=== PATIENT | male | born 1945 | race Caucasian/White ===

== ENCOUNTER 2019-05-23 08:00 | Outpatient (CLI) | payer MEDICARE ==
[~2019-05-23] VITALS: Ht 175.3 cm; Wt 110.0 kg
[2019-05-26 07:36] VITALS: BP 144/88
== END 2019-05-23 23:59 | disposition home or self-care (01) ==
LOC: STAR 08:00 → ORIP 05-26 06:36 → UNDOADMIN 05-26 06:36 → EDSTATUS 05-26 08:45 → UNDODISIN 05-26 08:50
PROVIDERS: ATTEND Orthopaedic Surgery
DX: Z01.818 Encounter for other preprocedural examination (principal); M25.551 Pain in right hip
CPT/HCPCS: 36415; 80053; 82962; 83036; 85025; 85610; 85730; 86850; 86900; 87081; 87806; 93005; J0171; J1885; J2795; G0475; J7120

== ENCOUNTER 2019-05-26 08:00 | Outpatient (CLI) | payer MEDICARE ==
[~2019-05-26 08:00] MED LIST: ACET325T14 PO; ALBU2.5V NPPB; ASPI81TA59 PO; ATOR10TA9 PO; ATOR20TA PO; ATOR20TA37 PO; CYAN1TAB29 PO; DABI150C PO; DEXT1DRO6 EACHEYE; DOCU-131 PO; FERR-51 PO; FURO-92 PO; GUAI5SYR PO; HYDR-3237 PO; HYDR10TA4 PO; IBUP-1623 PO; LISI-170 PO; LISI1TAB20 PO; NITR0.4T41 SL; OMEP-110 PO; PRADAXA PO; ROPI0.5T2 PO; SERT100T32 PO; SIMV20TA PO; TRAZ-137 PO; UNKNOWN CHOLESTEROL; WARF-36 PO-COUM; [UNRECOGNIZED DRUG - REMARK]; magnesium PO
== END 2019-05-26 23:59 | disposition home or self-care (01) ==
LOC: STAR 08:00
PROVIDERS: ATTEND Orthopaedic Surgery
DX: M16.11 Unilateral primary osteoarthritis, right hip (principal); Z53.8 Procedure and treatment not carried out for other reasons; Z79.899 Other long term (current) drug therapy
CPT/HCPCS: 36415; 82962; 86850; 86900; J7120; J0171; J1885; J2795

== ENCOUNTER 2020-05-22 11:34 | Emergency (ER) | payer MEDICARE ==
[~2020-05-22] VITALS: Ht 175.3 cm; Wt 104.0 kg
[~2020-05-22 11:34] MED LIST changes: +ASCO500T9 PO; +CEPH-368 PO; +CHOL10003 PO; +HYDR-2995 PO; -HYDR10TA4 PO; +NYST15PO2 TP; -ROPI0.5T2 PO; +ROPI0.5T4 PO; +SULF1TAB24 PO; -TRAZ-137 PO; +TRAZ-175 PO
[2020-05-22 11:38] VITALS: BP 129/56
[2020-05-22] MEDS ORDERED: OXYcodone/APAP 10/325MG TABLET ONE (12:09)
[2020-05-22 12:21] LABS: BASOPHILS # (AUTO) 0.05 x10^3/uL (0-0.1); BASOPHILS % (AUTO) 1 % (0-1); EOSINOPHILS # (AUTO) 0.16 x10^3/uL (0-0.4); EOSINOPHILS % (AUTO) 2 % (1-7); LYMPHOCYTES # (AUTO) 1.88 x10^3/uL (1-3.4); LYMPHOCYTES % (AUTO) 23 % (22-44); MD NO; MEAN CORPUSCULAR HEMOGLOBIN 29.3 pg (27.5-34.5); MEAN CORPUSCULAR HGB CONC 31.9 g/dL (33.2-36.2); MONOCYTES # (AUTO) 0.66 x10^3/uL (0.2-0.8); MONOCYTES % (AUTO) 8 % (2-9); NEUTROPHILS # (AUTO) 5.32 x10^3/uL (1.8-6.8); NEUTROPHILS % (AUTO) 66 % (42-75); PLATELET COUNT 305 x10^3/uL (130-400); RED BLOOD COUNT 3.52 x10^6/uL (4.38-5.82); RED CELL DISTRIBUTION WIDTH 16.2 % (9.4-14.8)
[2020-05-22] MEDS ORDERED: OXYcodone/APAP 10/325MG TABLET PO ONE (12:30)
[2020-05-22 12:32] LABS: ANION GAP 9 mmol/L (5-15); CALCIUM 7.7 mg/dL (8.5-10.1); CHLORIDE 114 mmol/L (98-107); CREATININE 0.83 mg/dL (0.7-1.3)
--- NOTE | 2020-05-22 12:41 | NUR ---
WOUND CARE PERFORMED ON RLE. MULTIPLE WOUNDS CLEANSED, PAT DRY. COVERED WITH XEROFORM AND WRAPPED WITH KERLIX. PT TO F/U WITH WOUND CARE CLINIC.
--- NOTE | 2020-05-22 12:43 | NUR ---
ALL RESULTS ARE BACK AT THIS TIME. CHART UP FOR RECHECK.
--- NOTE | 2020-05-22 13:00 | NUR ---
MD AT BEDSIDE TO UPDATE PT ON POC.
[2020-05-22] MEDS ORDERED: LIDOCAINE-MPF 1%, 5ML ONE (13:14)
[2020-05-22] MEDS ORDERED: CEFTRIAXONE 1,000 MG ONE (13:14)
--- NOTE | 2020-05-22 13:20 | NUR ---
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 LEFT TOES CLEANSED AND DRESSED WITH XEROFORM AND KERLIX.
[2020-05-22] MEDS ORDERED: CEFTRIAXONE 1,000 MG IM ONE (13:30)
== END 2020-05-22 13:34 | disposition home or self-care (01) ==
LOC: ED 12:41
DX: L03.115 Cellulitis of right lower limb (principal); I10 Essential (primary) hypertension; Z86.718 Personal history of other venous thrombosis and embolism
CPT/HCPCS: 36415; 73590; 80048; 82040; 85025; 96372; 99284; J0696